=== PATIENT | male | born 1950 | race Caucasian/White ===

== ENCOUNTER 2018-02-23 19:48 | Inpatient (IN) | payer MEDICARE, OTHER ==
[~2018-02-23] VITALS: Ht 170.2 cm; Wt 73.6 kg
--- NOTE | 2018-02-23 19:55 | Emergency Room Report ---
History of Present Illness General Chief Complaint: General Complaint Source: Patient, EMS, Law Enforcement Present Illness HPI EMS were called to the bus stop where this patient was. He has a history of dementia and knows his name but doesn't know where he lives. He has evidence of being recently evaluated in the hospital. He states he's been drinking alcohol today. He denies having pain anywhere at this time. Denies cough, nausea, vomiting, diarrhea, dyspnea, skin rash. He denies suicidal or homicidal ideation. He denies SI or HI. His recent memory is poor. Allergies: Coded Allergies: No Known Allergies (Unverified , 02/23/18) Patient History Limited by: medical condition Past Medical History: see triage record Social History: Reports: alcohol use Social History Narrative has a place where he lives allegedly Reviewed Nursing Documentation: PMH: Agreed; PSxH: Agreed Nursing Documentation-PMH Past Medical History: No Stated History Review of Systems All Other Systems: negative except mentioned in HPI - veracity questioned Physical Exam Vital Signs Date Time Temp Pulse Resp B/P (MAP) Pulse Ox O2 Delivery O2 Flow Rate FiO2 02/23/18 19:39 97.9 86 15 112/71 99 Room Air 97.9 Sp02 EP Interpretation: reviewed, normal General Appearance: well appearing, no apparent distress, other - GCS 14 - not clear on recent events Head: normocephalic, atraumatic Eyes: bilateral eye PERRL, bilateral eye Scleral Injection, bilateral eye other - lax lids ENT: moist mucus membranes Neck: supple, no bony tend Respiratory: chest non-tender, lungs clear, normal breath sounds Cardiovascular #1: regular rate, rhythm Cardiovascular #2: 2+ radial (R) Gastrointestinal: normal inspection, normal bowel sounds, non tender, no mass, non-distended Musculoskeletal: back normal, normal range of motion Neurologic: alert, motor strength/tone normal, DTRs symmetric, sensory intact, speech normal, oriented - X2 Psychiatric: mood/affect normal, no suicidal/homicidal ideation Skin: warm/dry, other - dishevelled, Recent EKG pad oliveros Medical Decision Making Diagnostic Impression: Primary Impression: Failure to thrive Qualified Codes: R62.7 - Adult failure to thrive Additional Impressions: Alcohol intoxication Qualified Codes: F10.929 - Alcohol use, unspecified with intoxication, unspecified Declining functional status ER Course Patient presents with altered level of consciousness after alcohol ingestion. There is no history of trauma. Is a nonfocal neurologic exam at this time. Differential includes dementia, electrolyte abnormality, acute intoxication amongst others. Evaluation will be with EKG, chest x-ray and labs. The patient will receive IV hydration. The patient has been placed on a 5150 by [employer]. Because of non-focal neurologic exam, CT head not indicated at this time. EKG without injury. CXR with possible R effusion and atelectasis bases. Labs with normal CBC, CMP. Alcohol elevated. UA otherwise clear. Patient improving with IV hydration, but still unable to state where he lives. Admit med, Dr. Rosario. A sitter is requested per hospital policy, however, it is felt un-necessary as the hold is for grave disability. Laboratory Tests Test 02/23/18 20:20 02/23/18 21:45 White Blood Count 6.9 K/UL (4.8-10.8) Red Blood Count 4.18 M/UL (4.70-6.10) L Hemoglobin 14.7 G/DL (14.2-18.0) Hematocrit 42.5 % (42.0-52.0) Mean Corpuscular Volume 102 FL (80-99) H Mean Corpuscular Hemoglobin 35.2 PG (27.0-31.0) H Mean Corpuscular Hemoglobin Concent 34.7 G/DL (32.0-36.0) Red Cell Distribution Width 11.9 % (11.6-14.8) Platelet Count 338 K/UL (150-450) Mean Platelet Volume 5.0 FL (6.5-10.1) L Neutrophils (%) (Auto) 39.8 % (45.0-75.0) L Lymphocytes (%) (Auto) 49.3 % (20.0-45.0) H Monocytes (%) (Auto) 9.2 % (1.0-10.0) Eosinophils (%) (Auto) 0.4 % (0.0-3.0) Basophils (%) (Auto) 1.4 % (0.0-2.0) Sodium Level 142 MMOL/L (136-145) Potassium Level 4.1 MMOL/L (3.5-5.1) Chloride Level 106 MMOL/L (98-107) Carbon Dioxide Level 30 MMOL/L (21-32) Anion Gap 6 mmol/L (5-15) Blood Urea Nitrogen 10 mg/dL (7-18) Creatinine 0.9 MG/DL (0.55-1.30) Estimate Glomerular Filtration Rate > 60 mL/min (>60) Glucose Level 101 MG/DL (74-106) Calcium Level 8.1 MG/DL (8.5-10.1) L Total Bilirubin 0.4 MG/DL (0.2-1.0) Aspartate Amino Transferase (AST) 26 U/L (15-37) Alanine Aminotransferase (ALT) 38 U/L (12-78) Alkaline Phosphatase 124 U/L (46-116) H Total Creatine Kinase 165 U/L (26-308) Troponin I 0.000 ng/mL (0.000-0.056) Total Protein 7.4 G/DL (6.4-8.2) Albumin 3.7 G/DL (3.4-5.0) Globulin 3.7 g/dL Albumin/Globulin Ratio 1.0 (1.0-2.7) Salicylates Level 1.1 ug/mL (2.8-20) L Acetaminophen Level < 2 MCG/ML (10-30) L Serum Alcohol 303 mg/dL Urine Color Pale yellow Urine Appearance Slightly cloudy Urine pH 6.5 (4.5-8.0) Urine Specific Athena 1.010 (1.005-1.035) Urine Protein Negative (NEGATIVE) Urine Glucose (UA) Negative (NEGATIVE) Urine Ketones Negative (NEGATIVE) Urine Blood Negative (NEGATIVE) Urine Nitrite Negative (NEGATIVE) Urine Bilirubin Negative (NEGATIVE) Urine Urobilinogen Normal MG/DL (0.0-1.0) Urine Leukocyte Esterase Negative (NEGATIVE) Urine Opiates Screen Negative (NEGATIVE) Urine Barbiturates Screen Negative (NEGATIVE) Phencyclidine (PCP) Screen Negative (NEGATIVE) Urine Amphetamines Screen Negative (NEGATIVE) Urine Benzodiazepines Screen Negative (NEGATIVE) Urine Cocaine Screen Negative (NEGATIVE) Urine Marijuana (THC) Screen Negative (NEGATIVE) EKG Diagnostic Results Rate: normal Rhythm: NSR ST Segments: no acute changes Rhythm Strip Diag. Results EP Interpretation: yes Rhythm: NSR, no PVC's, no ectopy Chest X-Ray Diagnostic Results Chest X-Ray Diagnostic Results : Chest X-Ray Ordered: Yes # of Views/Limited/Complete: 1 View Indication: Other Interpretation: no pneumothorax, other - increased oliveros Bilat and possible effusion R Impression: Other Electronically Signed by: Electronically signed by Stiven Langston MD Last Vital Signs Date Time Temp Pulse Resp B/P (MAP) Pulse Ox O2 Delivery O2 Flow Rate FiO2 02/23/18 20:01 97.9 67 15 132/79 99 Room Air 97.9 Status: improved Disposition: ADMITTED INPATIENT Condition: Serious Stiven Langston M.D. Feb 23, 2018 19:55
[2018-02-23 20:01] VITALS: BP 132/79
[2018-02-23 20:58] LABS: BASOPHILS % (AUTO) 1.4 % (0.0-2.0); EOSINOPHILS % (AUTO) 0.4 % (0.0-3.0); HEMATOCRIT 42.5 % (42.0-52.0); HEMOGLOBIN 14.7 G/DL (14.2-18.0); LYMPHOCYTES % (AUTO) 49.3 % (20.0-45.0); MEAN CORPUSCULAR VOLUME 102 FL (80-99); MONOCYTES % (AUTO) 9.2 % (1.0-10.0); NEUTROPHILS % (AUTO) 39.8 % (45.0-75.0); PLATELET COUNT 338 K/UL (150-450); RED BLOOD COUNT 4.18 M/UL (4.70-6.10); RED CELL DISTRIBUTION WIDTH 11.9 % (11.6-14.8); WHITE BLOOD COUNT 6.9 K/UL (4.8-10.8)
[2018-02-23] MEDS ORDERED: Thiamine HCl 100 MG in D5W 55 ML IVPB STA (21:08)
--- NOTE | 2018-02-23 21:32 | Diagnostic Imaging Report ---
EXAM: XR Chest, 1 View CLINICAL HISTORY: ALOC TECHNIQUE: Frontal view of the chest. COMPARISON: No relevant prior studies available. FINDINGS: Lungs: Mild bibasilar lung atelectasis. Pleural space: Query tiny right pleural effusion. No pneumothorax. Heart: Heart size upper limits normal. Mediastinum: Unremarkable. Bones/joints: Unremarkable. IMPRESSION: 1. Mild bibasilar lung atelectasis. 2. Query tiny right pleural effusion.
[2018-02-23 21:34] LABS: ANION GAP 6 mmol/L (5-15); BLOOD UREA NITROGEN 10 mg/dL (7-18); CALCIUM 8.1 MG/DL (8.5-10.1); CARBON DIOXIDE 30 MMOL/L (21-32); CHLORIDE 106 MMOL/L (98-107); CREATININE 0.9 MG/DL (0.55-1.30); POTASSIUM 4.1 MMOL/L (3.5-5.1); SODIUM 142 MMOL/L (136-145)
[2018-02-23 21:38] LABS: ALBUMIN 3.7 G/DL (3.4-5.0); ASPARTATE AMINO TRANSFERASE 26 U/L (15-37)
[2018-02-23 22:00] LABS: ALANINE AMINOTRANSFERASE 38 U/L (12-78); ALKALINE PHOSPHATASE 124 U/L (46-116); BILIRUBIN,TOTAL 0.4 MG/DL (0.2-1.0); CREATINE KINASE 165 U/L (26-308)
[2018-02-23 22:01] LABS: APPEARANCE,URINE SLIGHTLY CLOUDY; BILIRUBIN, URINE NEGATIVE (NEGATIVE); COLOR,URINE PALE YELLOW; GLUCOSE, URINE (UA) NEGATIVE (NEGATIVE); KETONES,URINE NEGATIVE (NEGATIVE); LEUKOCYTE ESTERASE ,URINE NEGATIVE (NEGATIVE); NITRITE,URINE NEGATIVE (NEGATIVE); PH,URINE 6.5 (4.5-8.0); PROTEIN,URINE NEGATIVE (NEGATIVE); UROBILINOGEN,URINE NORMAL MG/DL (0.0-1.0)
[2018-02-24 01:27] VITALS: BP 101/62
[2018-02-24 05:11] VITALS: BP 125/76
[2018-02-24 07:12] VITALS: BP 124/80
[2018-02-24] MEDS ORDERED: Miralax 17gm pkt ORAL PRN (07:30)
[2018-02-24] MEDS ORDERED: Morphine Sulfate 2mg/ml Inj IVP PRN (07:30)
[2018-02-24] MEDS ORDERED: LORazepam Inj 2mg/ml 1ml IV PRN (07:30)
[2018-02-24] MEDS ORDERED: chlordiazePOXIDE 25mg Cap ORAL PRN (07:30)
[2018-02-24] MEDS ORDERED: Mylanta II UD 30ml ORAL PRN (07:30)
[2018-02-24] MEDS: Thiamine 100mg IVPB (Q24H) IVPB SCH ×2 (10:53)
[2018-02-24] MEDS: Folic Acid 1 MG, Magnesium Sulfate 2,000 MG, Multivitamin - 12 Injection 10 ML in NS w/... IV SCH (10:54)
[2018-02-24] MEDS: Heparin 5000 units/ml inj SUBQ SCH ×2 (10:58→20:56)
[2018-02-24 12:00] VITALS: BP 138/84
[2018-02-24 16:00] VITALS: BP 145/93
[2018-02-24 20:00] VITALS: BP 127/87
[2018-02-24] MEDS ORDERED: Zolpidem 5mg tab ORAL PRN (20:00)
[2018-02-25 04:00] VITALS: BP 125/80
[2018-02-25 06:40] LABS: EOSINOPHILS % (AUTO) 0.7 % (0.0-3.0); HEMATOCRIT 38.5 % (42.0-52.0); HEMOGLOBIN 13.7 G/DL (14.2-18.0); LYMPHOCYTES % (AUTO) 28.6 % (20.0-45.0); MEAN CORPUSCULAR VOLUME 99 FL (80-99); MONOCYTES % (AUTO) 11.3 % (1.0-10.0); NEUTROPHILS % (AUTO) 58.4 % (45.0-75.0); PLATELET COUNT 259 K/UL (150-450); RED CELL DISTRIBUTION WIDTH 11.7 % (11.6-14.8); WHITE BLOOD COUNT 5.3 K/UL (4.8-10.8)
[2018-02-25 07:05] LABS: ALANINE AMINOTRANSFERASE 29 U/L (12-78); ALBUMIN/GLOBULIN RATIO 0.9 (1.0-2.7); ALKALINE PHOSPHATASE 109 U/L (46-116); ANION GAP 8 mmol/L (5-15); ASPARTATE AMINO TRANSFERASE 20 U/L (15-37); BILIRUBIN,TOTAL 0.9 MG/DL (0.2-1.0); BLOOD UREA NITROGEN 5 mg/dL (7-18); CALCIUM 8.3 MG/DL (8.5-10.1); CARBON DIOXIDE 27 MMOL/L (21-32); CHLORIDE 106 MMOL/L (98-107); CREATININE 0.8 MG/DL (0.55-1.30); POTASSIUM 4.1 MMOL/L (3.5-5.1); SODIUM 140 MMOL/L (136-145)
[2018-02-25 07:42] VITALS: BP 138/82
[2018-02-25] MEDS: DULoxetine 30mg cap ORAL SCH (08:24)
[2018-02-25] MEDS: Heparin 5000 units/ml inj SUBQ SCH ×2 (08:25→21:08)
--- NOTE | 2018-02-25 09:00 | History and Physical Report ---
DATE OF ADMISSION: 02/24/2018 TIME: 8 a.m. CONSULTANTS: 1. Susanne Mares M.D. 2. Abbey Wills M.D. 3. Juan Carlos Hernandez M.D. 4. Trevor Mireles M.D. CHIEF COMPLAINT: Weakness, opiates, alcohol intoxication, and confusion. BRIEF HISTORY: This is a 67-year-old male, who lives in a recuperative facility, presents to [place] last night, increased lethargy, gravely disabled, confused, has been drinking vodka one pint over the last day. The patient was admitted for above to medical floor. Currently, slightly anxious in bed. No nausea, vomiting, or diarrhea. PAST MEDICAL HISTORY: Alcoholism and weakness. PAST SURGICAL HISTORY: Mastoid, right shoulder. MEDICATIONS: Include zolpidem, folic acid, thiamine, heparin, Tylenol, morphine, Zofran, lorazepam, and Librium. ALLERGIES: Denies. SOCIAL HISTORY: No smoking. Positive alcohol. No intravenous drug abuse. FAMILY HISTORY: Noncontributory. PHYSICAL EXAMINATION: GENERAL: Slightly anxious in bed, oriented x2, in no acute distress. VITAL SIGNS: Temperature 97, pulse 64, respirations 19, and blood pressure 124/76. CARDIOVASCULAR: No murmurs. LUNGS: Distant and clear. ABDOMEN: Bowel sounds positive. Nontender. Nondistended. EXTREMITIES: No cyanosis, clubbing, or edema. NEUROLOGIC: The patient moves all extremities, slightly weak. LABORATORY AND DIAGNOSTIC DATA: Labs at this time show CBC is normal. BMP show calcium is 8.1, alkaline phosphatase 124, troponin 0.00, otherwise BMP is normal. Urinalysis is negative. Urine tox, salicylate 1.1. Tylenol less than 2. Alcohol level 303. ASSESSMENT: 1. Gravely disabled. 2. . 3. Alcohol intoxication 5150. PLAN: 1. Psychiatric treatment. 2. Neurology followup. 3. Dietary followup. 4. Detox. 5. OT, PT, and dietary evaluation. 6. CBC and BMP in the morning. 7. Resume home medications. Nimesh Rosario D.O. DR: VINNIE JOB#: [id number] CC:
[2018-02-25] MEDS: Thiamine 100mg IVPB (Q24H) IVPB SCH ×2 (09:38)
[2018-02-25] MEDS: Folic Acid 1 MG, Magnesium Sulfate 2,000 MG, Multivitamin - 12 Injection 10 ML in NS w/... IV SCH (09:38)
--- NOTE | 2018-02-25 11:38 | General Progress Note ---
Assessment/Plan Problem List: (1) Declining functional status ICD Codes: R53.81 - Other malaise SNOMED: 346806438117249 (2) Failure to thrive SNOMED: 01414264 Qualifiers: Qualified Codes: R62.7 - Adult failure to thrive (3) Alcohol intoxication ICD Codes: F10.929 - Alcohol use, unspecified with intoxication, unspecified SNOMED: 71863385 Qualifiers: Qualified Codes: F10.929 - Alcohol use, unspecified with intoxication, unspecified (4) Delirium ICD Codes: R41.0 - Disorientation, unspecified SNOMED: 6175182 Status: unchanged Assessment/Plan ot pt diet detox cbc bmp am dc plan snf Subjective Constitutional: Reports: weakness Allergies: Coded Allergies: No Known Allergies (Unverified , 02/23/18) All Systems: reviewed and negative except above Subjective calm in bed Objective Last 24 Hour Vital Signs Date Time Temp Pulse Resp B/P (MAP) Pulse Ox O2 Delivery O2 Flow Rate FiO2 02/25/18 08:00 Room Air 02/25/18 07:42 97.5 80 18 138/82 (100) 96 97.5 02/25/18 04:00 96.5 57 19 125/80 (95) 95 96.5 57 02/24/18 21:00 Room Air 02/24/18 20:00 98.1 65 20 127/87 (100) 95 98.1 65 02/24/18 16:00 98.1 73 20 145/93 (110) 95 98.1 02/24/18 12:00 98.8 76 20 138/84 (102) 94 98.8 Intake and Output 02/24/18 02/25/18 19:00 07:00 Intake Total 1771.008 ml 604.876 ml Output Total 1000 ml 1500 ml Balance 771.008 ml -895.124 ml Intake Oral 660 ml 480 ml IV Total 1111.008 ml 124.876 ml Output Urine Total 1000 ml 1500 ml # Voids 6 # Bowel Movements 1 Laboratory Tests 02/25/18 06:00: White Blood Count 5.3, Red Blood Count 3.90L, Hemoglobin 13.7L, Hematocrit 38.5L , Mean Corpuscular Volume 99, Mean Corpuscular Hemoglobin 35.1H, Mean Corpuscular Hemoglobin Concent 35.6, Red Cell Distribution Width 11.7, Platelet Count 259, Mean Platelet Volume 5.7L, Neutrophils (%) (Auto) 58.4, Lymphocytes ( %) (Auto) 28.6, Monocytes (%) (Auto) 11.3H, Eosinophils (%) (Auto) 0.7, Basophils (%) (Auto) 1.0, Sodium Level 140, Potassium Level 4.1, Chloride Level 106, Carbon Dioxide Level 27, Anion Gap 8, Blood Urea Nitrogen 5L, Creatinine 0.8, Estimat Glomerular Filtration Rate > 60, Glucose Level 92, Calcium Level 8.3L, Total Bilirubin 0.9, Aspartate Amino Transf (AST/SGOT) 20, Alanine Aminotransferase (ALT/SGPT) 29, Alkaline Phosphatase 109, Total Protein 6.3L, Albumin 3.0L, Globulin 3.3, Albumin/Globulin Ratio 0.9L Height (Feet): 5 Height (Inches): 7.00 Weight (Pounds): 160 General Appearance: lethargic EENT: normal ENT inspection Neck: normal alignment Cardiovascular: normal peripheral pulses, normal rate, regular rhythm Respiratory/Chest: chest wall non-tender, lungs clear, normal breath sounds Abdomen: normal bowel sounds, non tender, soft Extremities: normal inspection Edema: no edema noted Arm (L), no edema noted Arm (R), no edema noted Leg (L), no edema noted Leg (R), no edema noted Pedal (L), no edema noted Pedal (R), no edema noted Generalized Neurologic: responsive, motor weakness Skin: normal pigmentation, warm/dry Nimesh Rosario DO Feb 25, 2018 11:38
[2018-02-25 11:40] VITALS: BP 127/87
--- NOTE | 2018-02-25 11:55 | Consultation ---
Consult Note Consult Note EMS were called to the bus stop where this patient was. He has a history of dementia and knows his name but doesn't know where he lives. He has evidence of being recently evaluated in the hospital. He states he's been drinking alcohol today. He denies having pain anywhere at this time. Denies cough, nausea, vomiting, diarrhea, dyspnea, skin rash. He denies suicidal or homicidal ideation. He denies SI or HI. His recent memory is poor. examined data reviewed Assessment/Plan Failure to thrive Alcohol intoxication Declining functional status IV fluids Thiamin Librium DC planning Juan Carlos Hernandez MD Feb 25, 2018 11:55
[2018-02-25] MEDS: Thiamine 100mg tab ORAL SCH (12:00)
[2018-02-25] MEDS ORDERED: Isovue-300 100ml vial INJ PRN (13:45)
--- NOTE | 2018-02-25 13:47 | Consultation ---
History of Present Illness General Date patient seen: Feb 25, 2018 Chief Complaint: General Complaint Present Illness HPI 67 year old male with unknown PMHx was brought in from a bus stop where this patient was found inebriated and confused. He has a history of dementia and knows his name but doesn't know where he lives. He states he's been drinking alcohol today. He denies having pain anywhere at this time. His CXR showed RLL atelectasis. His ETOH level were remarkably high as well. Allergies: Coded Allergies: No Known Allergies (Unverified , 02/23/18) Patient History Healthcare decision maker Resuscitation status Full Code Advanced Directive on File Past Medical/Surgical History Past Medical/Surgical History: (1) ETOH abuse Review of Systems All Other Systems: negative except mentioned in HPI Physical Exam General Appearance: WD/WN Lines, tubes and drains: peripheral HEENT: atraumatic, anicteric Neck: non-tender, normal alignment Respiratory/Chest: chest wall non-tender, lungs clear Breasts: no masses Cardiovascular/Chest: normal rate Abdomen: normal bowel sounds Genitourinary/Rectal: normal genital exam Extremities: normal range of motion Last 24 Hour Vital Signs Date Time Temp Pulse Resp B/P (MAP) Pulse Ox O2 Delivery O2 Flow Rate FiO2 02/25/18 11:40 96.8 71 18 127/87 (100) 96 96.8 0 02/25/18 08:00 Room Air 02/25/18 07:42 97.5 80 18 138/82 (100) 96 97.5 02/25/18 04:00 96.5 57 19 125/80 (95) 95 96.5 57 02/24/18 21:00 Room Air 02/24/18 20:00 98.1 65 20 127/87 (100) 95 98.1 65 02/24/18 16:00 98.1 73 20 145/93 (110) 95 98.1 Intake and Output 02/24/18 02/25/18 19:00 07:00 Intake Total 1771.008 ml 604.876 ml Output Total 1000 ml 1500 ml Balance 771.008 ml -895.124 ml Intake Oral 660 ml 480 ml IV Total 1111.008 ml 124.876 ml Output Urine Total 1000 ml 1500 ml # Voids 6 # Bowel Movements 1 Laboratory Tests Test 10/8/18 06:00 White Blood Count 5.3 K/UL (4.8-10.8) Red Blood Count 3.90 M/UL (4.70-6.10) L Hemoglobin 13.7 G/DL (14.2-18.0) L Hematocrit 38.5 % (42.0-52.0) L Mean Corpuscular Volume 99 FL (80-99) Mean Corpuscular Hemoglobin 35.1 PG (27.0-31.0) H Mean Corpuscular Hemoglobin Concent 35.6 G/DL (32.0-36.0) Red Cell Distribution Width 11.7 % (11.6-14.8) Platelet Count 259 K/UL (150-450) Mean Platelet Volume 5.7 FL (6.5-10.1) L Neutrophils (%) (Auto) 58.4 % (45.0-75.0) Lymphocytes (%) (Auto) 28.6 % (20.0-45.0) Monocytes (%) (Auto) 11.3 % (1.0-10.0) H Eosinophils (%) (Auto) 0.7 % (0.0-3.0) Basophils (%) (Auto) 1.0 % (0.0-2.0) Sodium Level 140 MMOL/L (136-145) Potassium Level 4.1 MMOL/L (3.5-5.1) Chloride Level 106 MMOL/L (98-107) Carbon Dioxide Level 27 MMOL/L (21-32) Anion Gap 8 mmol/L (5-15) Blood Urea Nitrogen 5 mg/dL (7-18) L Creatinine 0.8 MG/DL (0.55-1.30) Estimat Glomerular Filtration Rate > 60 mL/min (>60) Glucose Level 92 MG/DL (74-106) Calcium Level 8.3 MG/DL (8.5-10.1) L Total Bilirubin 0.9 MG/DL (0.2-1.0) Aspartate Amino Transf (AST/SGOT) 20 U/L (15-37) Alanine Aminotransferase (ALT/SGPT) 29 U/L (12-78) Alkaline Phosphatase 109 U/L (46-116) Total Protein 6.3 G/DL (6.4-8.2) L Albumin 3.0 G/DL (3.4-5.0) L Globulin 3.3 g/dL Albumin/Globulin Ratio 0.9 (1.0-2.7) L Height (Feet): 5 Height (Inches): 7.00 Weight (Pounds): 160 Medications Current Medications Medications (Trade) Dose Ordered Sig/Mio Route PRN Reason Start Time Stop Time Status Last Admin Dose Admin Acetaminophen (Tylenol) 650 mg Q4H PRN ORAL fever (temp>100.5F) 02/24/18 07:30 03/26/18 07:29 Chlordiazepoxide (Librium) 25 mg Q6H PRN ORAL Agitation 02/24/18 07:30 03/03/18 07:29 Dextrose (Dextrose 50%) 25 ml Q30M PRN IV Hypoglycemia 02/24/18 07:30 03/26/18 07:29 Dextrose (Dextrose 50%) 50 ml Q30M PRN IV Hypoglycemia 02/24/18 07:30 03/26/18 07:29 Duloxetine HCl (Cymbalta) 30 mg DAILY ORAL 02/25/18 09:00 03/27/18 08:59 02/25/18 08:24 Folic Acid (Folate) 1 mg DAILY ORAL 02/25/18 12:00 03/27/18 11:59 Gabapentin (Neurontin) 300 mg TID ORAL 02/25/18 09:00 03/27/18 08:59 02/25/18 12:31 Heparin Sodium (Porcine) (Heparin 5000 units/ml) 5,000 units EVERY 12 HOURS SUBQ 02/24/18 09:00 03/26/18 08:59 02/25/18 08:25 Lorazepam (Ativan 2mg/ml 1ml) 2 mg Q1H PRN IV seizures 02/24/18 07:30 03/03/18 07:29 Morphine Sulfate (Morphine Sulfate) 1 mg Q4H PRN IVP For Pain 02/24/18 07:30 03/03/18 07:29 Ondansetron HCl (Zofran) 4 mg Q6H PRN IVP Nausea & Vomiting 02/24/18 07:30 03/26/18 07:29 Pantoprazole (Protonix) 40 mg DAILY ORAL 02/26/18 09:00 03/28/18 08:59 Polyethylene Glycol (Miralax) 17 gm HSPRN PRN ORAL Constipation 02/24/18 07:30 03/26/18 07:29 Thiamine HCl (Vitamin B1) 100 mg DAILY ORAL 02/25/18 12:00 03/27/18 11:59 Zolpidem Tartrate (Ambien) 5 mg HSPRN PRN ORAL Insomnia 02/24/18 20:00 03/03/18 19:59 Assessment/Plan Problem List: (1) RLL atelectasis (2) ETOH abuse ICD Codes: F10.10 - Alcohol abuse, uncomplicated SNOMED: 77118638 (3) Failure to thrive SNOMED: 61729459 Qualifiers: Qualified Codes: R62.7 - Adult failure to thrive (4) Delirium ICD Codes: R41.0 - Disorientation, unspecified SNOMED: 1737802 (5) Alcohol intoxication ICD Codes: F10.929 - Alcohol use, unspecified with intoxication, unspecified SNOMED: 30259625 Qualifiers: Qualified Codes: F10.929 - Alcohol use, unspecified with intoxication, unspecified Assessment/Plan IV fluids banana bag CT chest social service consult. Abbey Wills MD Feb 25, 2018 13:47
--- NOTE | 2018-02-25 14:45 | Cardiology Report ---
APPROVED REPORT EKG Measurement Heart [id number] Normal sinus rhythm Normal ECG
[2018-02-25 16:00] VITALS: BP 135/94
--- NOTE | 2018-02-25 16:21 | Diagnostic Imaging Report ---
Indication: Chest pain Technique: Continuous helical transaxial imaging of the chest was obtained from the thoracic inlet to the upper abdomen after intravenous nonionic contrast administration. Coronal 2-D reformats were also obtained. Automatic Exposure Control was utilized. Total Dose length Product (DLP): 991.[address] Dose Index Volume (CTDIvol): 24.46 mGy Comparison: none Findings: There is mild basal atelectasis with reticular markings noted at the lung periphery in the dependent posterior basilar fashion. The esophagus is fluid-filled and slightly dilated. There is no adenopathy. The heart is unremarkable. The liver is low in attenuation consistent with fatty infiltration. Multiple gallstones demonstrated. There is narrowing of intervertebral discs and accompanying endplate osteophyte formation. Hypertrophied facet joints also demonstrated. There is a left shoulder prosthesis. IMPRESSION: Slightly distended esophagus. Correlate clinically. Minimal basal atelectasis. Fatty liver. Cholelithiasis Degenerative changes of the spine The CT scanner at [facility] is accredited by the [employer] and the scans are performed using dose optimization techniques as appropriate to a performed exam including Automatic Exposure control.
[2018-02-25 20:00] VITALS: BP 168/91
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
[2018-02-26] VITALS: BP 140/81
[2018-02-26 04:00] VITALS: BP 151/82
[2018-02-26 06:39] LABS: EOSINOPHILS % (AUTO) 0.8 % (0.0-3.0); HEMATOCRIT 41.5 % (42.0-52.0); HEMOGLOBIN 15.1 G/DL (14.2-18.0); LYMPHOCYTES % (AUTO) 31.1 % (20.0-45.0); MEAN CORPUSCULAR VOLUME 98 FL (80-99); NEUTROPHILS % (AUTO) 59.1 % (45.0-75.0); PLATELET COUNT 281 K/UL (150-450); RED BLOOD COUNT 4.22 M/UL (4.70-6.10); RED CELL DISTRIBUTION WIDTH 11.4 % (11.6-14.8); WHITE BLOOD COUNT 7.1 K/UL (4.8-10.8)
[2018-02-26 07:14] LABS: ALANINE AMINOTRANSFERASE 30 U/L (12-78); ALBUMIN 3.3 G/DL (3.4-5.0); ALBUMIN/GLOBULIN RATIO 0.9 (1.0-2.7); ALKALINE PHOSPHATASE 116 U/L (46-116); ASPARTATE AMINO TRANSFERASE 19 U/L (15-37); BILIRUBIN,TOTAL 0.9 MG/DL (0.2-1.0); BLOOD UREA NITROGEN 5 mg/dL (7-18); CALCIUM 8.6 MG/DL (8.5-10.1); CHLORIDE 105 MMOL/L (98-107); CREATININE 0.7 MG/DL (0.55-1.30); POTASSIUM 4.5 MMOL/L (3.5-5.1); SODIUM 139 MMOL/L (136-145)
[2018-02-26 07:39] VITALS: BP 138/84
[2018-02-26 07:48] LABS: PHOSPHORUS 3.7 MG/DL (2.5-4.9)
[2018-02-26 07:59] LABS: CARBON DIOXIDE 19 MMOL/L (21-32)
[2018-02-26] MEDS: Thiamine 100mg tab ORAL SCH (08:04)
[2018-02-26] MEDS: DULoxetine 30mg cap ORAL SCH (08:04)
[2018-02-26] MEDS: Heparin 5000 units/ml inj SUBQ SCH ×2 (08:09→20:57)
[2018-02-26 11:36] VITALS: BP 128/72
--- NOTE | 2018-02-26 12:35 | Nephrology Progress Note ---
Assessment/Plan Problem List: (1) Failure to thrive (2) Alcohol intoxication (3) Declining functional status Assessment Failure to thrive Alcohol intoxication Declining functional status Plan IV fluids Thiamin Librium DC planning Subjective ROS Limited/Unobtainable: No Objective Objective Last 24 Hour Vital Signs Date Time Temp Pulse Resp B/P (MAP) Pulse Ox O2 Delivery O2 Flow Rate FiO2 02/26/18 11:36 97.3 70 20 128/72 (90) 96 97.3 02/26/18 07:39 97.5 73 20 138/84 (102) 95 97.5 02/26/18 07:30 Room Air 02/26/18 04:00 97.6 67 19 151/82 (105) 98 97.6 02/26/18 00:00 97.2 58 20 140/81 (100) 97 97.2 02/25/18 21:00 Room Air 02/25/18 20:00 97.0 68 20 168/91 (116) 95 97.0 02/25/18 16:00 97.4 83 18 135/94 (108) 97 97.4 83 Intake and Output 02/25/18 02/26/18 19:00 07:00 Intake Total 3996.4 ml Output Total 400 ml Balance 3596.4 ml Intake Oral 1990 ml IV Total 2006.4 ml Output Urine Total 400 ml # Voids 6 1 Laboratory Tests 02/25/18 23:00: Hemoglobin A1c 5.0, Ammonia 21, Vitamin B12 Level 667, Folate 35.7, Thyroid Stimulating Hormone (TSH) 3.305 02/26/18 05:50: White Blood Count 7.1, Red Blood Count 4.22L, Hemoglobin 15.1, Hematocrit 41.5L , Mean Corpuscular Volume 98, Mean Corpuscular Hemoglobin 35.7H, Mean Corpuscular Hemoglobin Concent 36.3H, Red Cell Distribution Width 11.4L, Platelet Count 281, Mean Platelet Volume 5.5L, Neutrophils (%) (Auto) 59.1, Lymphocytes (%) (Auto) 31.1, Monocytes (%) (Auto) 8.0, Eosinophils (%) (Auto) 0.8, Basophils (%) (Auto) 1.0, Erythrocyte Sedimentation Rate 19, Sodium Level 139, Potassium Level 4.5, Chloride Level 105, Carbon Dioxide Level 19L, Blood Urea Nitrogen 5L, Creatinine 0.7, Estimat Glomerular Filtration Rate > 60, Glucose Level 91, Calcium Level 8.6, Phosphorus Level 3.7, Magnesium Level 2.2, Total Bilirubin 0.9, Aspartate Amino Transf (AST/SGOT) 19, Alanine Aminotransferase (ALT/SGPT) 30, Alkaline Phosphatase 116, C-Reactive Protein, Quantitative < 0.4, Total Protein 6.8, Albumin 3.3L, Globulin 3.5, Albumin/ Globulin Ratio 0.9L Height (Feet): 5 Height (Inches): 7.00 Weight (Pounds): 160 General Appearance: no apparent distress Objective no change Juan Carlos Hernandez MD Feb 26, 2018 12:35
--- NOTE | 2018-02-26 13:43 | Pulmonology Progress Note ---
Assessment/Plan Problems: (1) RLL atelectasis (2) ETOH abuse (3) Failure to thrive (4) Delirium (5) Alcohol intoxication Assessment/Plan pain control neuro evaluation in progress pt/ot EEG and MRI of Brain pending symptomatic treatment check electrolytes' dvt prophylaxis Subjective ROS Limited/Unobtainable: No Constitutional: Reports: no symptoms HEENT: Repors: no symptoms Respiratory: Reports: no symptoms Allergies: Coded Allergies: No Known Allergies (Unverified , 02/23/18) Objective Last 24 Hour Vital Signs Date Time Temp Pulse Resp B/P (MAP) Pulse Ox O2 Delivery O2 Flow Rate FiO2 02/26/18 11:36 97.3 70 20 128/72 (90) 96 97.3 02/26/18 07:39 97.5 73 20 138/84 (102) 95 97.5 02/26/18 07:30 Room Air 02/26/18 04:00 97.6 67 19 151/82 (105) 98 97.6 02/26/18 00:00 97.2 58 20 140/81 (100) 97 97.2 02/25/18 21:00 Room Air 02/25/18 20:00 97.0 68 20 168/91 (116) 95 97.0 02/25/18 16:00 97.4 83 18 135/94 (108) 97 97.4 83 Intake and Output 02/25/18 02/26/18 19:00 07:00 Intake Total 3996.4 ml Output Total 400 ml Balance 3596.4 ml Intake Oral 1990 ml IV Total 2006.4 ml Output Urine Total 400 ml # Voids 6 1 General Appearance: WD/WN HEENT: normocephalic, atraumatic Respiratory/Chest: chest wall non-tender, normal breath sounds Cardiovascular: normal peripheral pulses, normal rate Abdomen: normal bowel sounds, soft, non tender Genitourinary: normal external genitalia Extremities: no cyanosis Skin: no lesions Neurologic/Psychiatric: slasher hand II-XII grossly normal Microbiology Date/Time Source Procedure Growth Status 02/24/18 11:30 Nasal Nares MRSA Culture - Final NO METHICILLIN RESISTANT STAPH AUREUS... Complete 02/24/18 11:30 Rectum VRE Culture - Final NO VANCOMYCIN RESISTANT ENTEROCOCCUS ... Complete Laboratory Tests 02/25/18 23:00: Hemoglobin A1c 5.0, Ammonia 21, Vitamin B12 Level 667, Folate 35.7, Thyroid Stimulating Hormone (TSH) 3.305 02/26/18 05:50: White Blood Count 7.1, Red Blood Count 4.22L, Hemoglobin 15.1, Hematocrit 41.5L , Mean Corpuscular Volume 98, Mean Corpuscular Hemoglobin 35.7H, Mean Corpuscular Hemoglobin Concent 36.3H, Red Cell Distribution Width 11.4L, Platelet Count 281, Mean Platelet Volume 5.5L, Neutrophils (%) (Auto) 59.1, Lymphocytes (%) (Auto) 31.1, Monocytes (%) (Auto) 8.0, Eosinophils (%) (Auto) 0.8, Basophils (%) (Auto) 1.0, Erythrocyte Sedimentation Rate 19, Sodium Level 139, Potassium Level 4.5, Chloride Level 105, Carbon Dioxide Level 19L, Blood Urea Nitrogen 5L, Creatinine 0.7, Estimat Glomerular Filtration Rate > 60, Glucose Level 91, Calcium Level 8.6, Phosphorus Level 3.7, Magnesium Level 2.2, Total Bilirubin 0.9, Aspartate Amino Transf (AST/SGOT) 19, Alanine Aminotransferase (ALT/SGPT) 30, Alkaline Phosphatase 116, C-Reactive Protein, Quantitative < 0.4, Total Protein 6.8, Albumin 3.3L, Globulin 3.5, Albumin/ Globulin Ratio 0.9L Current Medications Medications (Trade) Dose Ordered Sig/Mio Route PRN Reason Start Time Stop Time Status Last Admin Dose Admin Acetaminophen (Tylenol) 650 mg Q4H PRN ORAL fever (temp>100.5F) 02/24/18 07:30 03/26/18 07:29 Chlordiazepoxide (Librium) 25 mg Q6H PRN ORAL Agitation 02/24/18 07:30 03/03/18 07:29 Dextrose (Dextrose 50%) 25 ml Q30M PRN IV Hypoglycemia 02/24/18 07:30 03/26/18 07:29 Dextrose (Dextrose 50%) 50 ml Q30M PRN IV Hypoglycemia 02/24/18 07:30 03/26/18 07:29 Duloxetine HCl (Cymbalta) 30 mg DAILY ORAL 02/25/18 09:00 03/27/18 08:59 02/26/18 08:04 Folic Acid (Folate) 1 mg DAILY ORAL 02/25/18 12:00 03/27/18 11:59 02/26/18 08:03 Gabapentin (Neurontin) 300 mg TID ORAL 02/25/18 09:00 03/27/18 08:59 02/26/18 12:15 Heparin Sodium (Porcine) (Heparin 5000 units/ml) 5,000 units EVERY 12 HOURS SUBQ 02/24/18 09:00 03/26/18 08:59 02/26/18 08:09 Iopamidol (Isovue-300 100ml) 100 ml NOW PRN INJ Radiology Procedure 02/25/18 13:45 02/27/18 13:44 Lorazepam (Ativan 2mg/ml 1ml) 2 mg Q1H PRN IV seizures 02/24/18 07:30 03/03/18 07:29 Morphine Sulfate (Morphine Sulfate) 1 mg Q4H PRN IVP For Pain 02/24/18 07:30 03/03/18 07:29 Ondansetron HCl (Zofran) 4 mg Q6H PRN IVP Nausea & Vomiting 02/24/18 07:30 03/26/18 07:29 Pantoprazole (Protonix) 40 mg DAILY ORAL 02/26/18 09:00 03/28/18 08:59 02/26/18 08:04 Polyethylene Glycol (Miralax) 17 gm HSPRN PRN ORAL Constipation 02/24/18 07:30 03/26/18 07:29 Thiamine HCl (Vitamin B1) 100 mg DAILY ORAL 02/25/18 12:00 03/27/18 11:59 02/26/18 08:04 Zolpidem Tartrate (Ambien) 5 mg HSPRN PRN ORAL Insomnia 02/24/18 20:00 03/03/18 19:59 Abbey Wills MD Feb 26, 2018 13:43
--- NOTE | 2018-02-26 14:13 | General Progress Note ---
Assessment/Plan Problem List: (1) Declining functional status ICD Codes: R53.81 - Other malaise SNOMED: 931153974568753 (2) Failure to thrive SNOMED: 17766081 Qualifiers: Qualified Codes: R62.7 - Adult failure to thrive (3) Alcohol intoxication ICD Codes: F10.929 - Alcohol use, unspecified with intoxication, unspecified SNOMED: 93590523 Qualifiers: Qualified Codes: F10.929 - Alcohol use, unspecified with intoxication, unspecified (4) Delirium ICD Codes: R41.0 - Disorientation, unspecified SNOMED: 2272253 Status: stable, progressing Assessment/Plan ot pt diet detox dc if clear Subjective Constitutional: Reports: weakness Allergies: Coded Allergies: No Known Allergies (Unverified , 02/23/18) All Systems: reviewed and negative except above Subjective calm in bed Objective Last 24 Hour Vital Signs Date Time Temp Pulse Resp B/P (MAP) Pulse Ox O2 Delivery O2 Flow Rate FiO2 02/26/18 11:36 97.3 70 20 128/72 (90) 96 97.3 02/26/18 07:39 97.5 73 20 138/84 (102) 95 97.5 02/26/18 07:30 Room Air 02/26/18 04:00 97.6 67 19 151/82 (105) 98 97.6 02/26/18 00:00 97.2 58 20 140/81 (100) 97 97.2 02/25/18 21:00 Room Air 02/25/18 20:00 97.0 68 20 168/91 (116) 95 97.0 02/25/18 16:00 97.4 83 18 135/94 (108) 97 97.4 83 Intake and Output 02/25/18 02/26/18 19:00 07:00 Intake Total 3996.4 ml Output Total 400 ml Balance 3596.4 ml Intake Oral 1990 ml IV Total 2006.4 ml Output Urine Total 400 ml # Voids 6 1 Laboratory Tests 02/25/18 23:00: Hemoglobin A1c 5.0, Ammonia 21, Vitamin B12 Level 667, Folate 35.7, Thyroid Stimulating Hormone (TSH) 3.305 02/26/18 05:50: White Blood Count 7.1, Red Blood Count 4.22L, Hemoglobin 15.1, Hematocrit 41.5L , Mean Corpuscular Volume 98, Mean Corpuscular Hemoglobin 35.7H, Mean Corpuscular Hemoglobin Concent 36.3H, Red Cell Distribution Width 11.4L, Platelet Count 281, Mean Platelet Volume 5.5L, Neutrophils (%) (Auto) 59.1, Lymphocytes (%) (Auto) 31.1, Monocytes (%) (Auto) 8.0, Eosinophils (%) (Auto) 0.8, Basophils (%) (Auto) 1.0, Erythrocyte Sedimentation Rate 19, Sodium Level 139, Potassium Level 4.5, Chloride Level 105, Carbon Dioxide Level 19L, Blood Urea Nitrogen 5L, Creatinine 0.7, Estimat Glomerular Filtration Rate > 60, Glucose Level 91, Calcium Level 8.6, Phosphorus Level 3.7, Magnesium Level 2.2, Total Bilirubin 0.9, Aspartate Amino Transf (AST/SGOT) 19, Alanine Aminotransferase (ALT/SGPT) 30, Alkaline Phosphatase 116, C-Reactive Protein, Quantitative < 0.4, Total Protein 6.8, Albumin 3.3L, Globulin 3.5, Albumin/ Globulin Ratio 0.9L Height (Feet): 5 Height (Inches): 7.00 Weight (Pounds): 160 General Appearance: lethargic EENT: normal ENT inspection Neck: normal alignment Cardiovascular: normal peripheral pulses, normal rate, regular rhythm Respiratory/Chest: chest wall non-tender, lungs clear, normal breath sounds Abdomen: normal bowel sounds, non tender, soft Extremities: normal inspection Edema: no edema noted Arm (L), no edema noted Arm (R), no edema noted Leg (L), no edema noted Leg (R), no edema noted Pedal (L), no edema noted Pedal (R), no edema noted Generalized Neurologic: motor weakness Skin: normal pigmentation, warm/dry Nimesh Rosario DO Feb 26, 2018 14:13
--- NOTE | 2018-02-26 15:16 | Diagnostic Imaging Report ---
Indication: Dementia. Loss of memory Technique: The head was imaged in a 1.5 Shreya magnet. Sequences obtained include sagittal and axial T1 FLAIR, axial T2 fast spin echo with fat saturation, axial T2 FLAIR, diffusion and ADC map. Comparison: None Findings: There is moderate prominence of the sulci, ventricles, and basal cisterns consistent with atrophy. Moderate, nonspecific T2 hyperintensity noted within white matter. This may be due to chronic small vessel disease. There is a cavum septum pellucidum noted. There is no restricted diffusion. Boucher-white differentiation is normal. There is no mass effect, midline shift, edema, or hemorrhage. There are no abnormal extra-axial or intra-axial fluid collections. The corpus callosum and sella are unremarkable. The brainstem and cerebellum are unremarkable. Bone marrow signal within the visualized osseous structures appears age appropriate and unremarkable otherwise. There is fluid signal in the right mastoid region and the mild fluid signal in the anterior ethmoid region. Impression: No acute intracranial findings. Moderate atrophy and evidence of chronic small vessel disease involving white matter tracts. Cavum septum pellucidum Mild right mastoiditis and sinusitis
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
[2018-02-26 16:34] VITALS: BP 145/93
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
[2018-02-26 20:00] VITALS: BP 140/86
--- NOTE | 2018-02-26 21:00 | Progress Note ---
DATE: 02/26/2018 NOTE: "POOR AUDIO QUALITY" SUBJECTIVE: The patient is a 67-year-old male. The patient has failure to thrive. He is confused, disorganized. He has altered mental status. For that reason, his attending has requested daily psychiatric consultation. He also is detoxing from alcohol intoxication. I saw and assessed this patient in his room. He still complains of a lot of anxiety, depression, and some slight mood lability worsened by stress of his medical illness and that is why his attending has requested daily psychiatric consultation for this patient. He has turned towards depression and anxiety because of a lot of life's circumstances he has had to go through and decline in function due to traumatic events he just had to go through has declined significantly. Now he is unable to work and as a result had dropped in finances. MENTAL STATUS EXAMINATION: This is a 67-year-old male. Appearance is disheveled. Attitude, irritable and agitated. Affect, guarded and restricted. Intellect poor. Mood, depressed and anxious. Motor activity, psychomotor agitation. Attention span is poor. Orientation x2. Speech is low volume and slurred. Thought process, disorganized and illogical. Thought content, he denies auditory or visual hallucinations. Insight and judgment is poor. Denies suicidal or homicidal thoughts. DIAGNOSIS: Major depressive disorder, severe, recurrent without psychotic features. PLAN: Treat him with Neurontin 300 mg three times a day and then he will continue on his Neurontin 300 mg three times a day and Cymbalta to reduce the pain, anxiety, and depression 30 mg p.o. daily. He is no longer on Librium. Provided 20 minutes of cognitive behavioral therapy where I helped the patient identify his automatic negative thoughts and helped him to convert those negative thoughts to more positive thoughts to reduce depression, anxiety, and suicidality. A 20 minutes of cognitive behavioral therapy. Chart reviewed. Discussed with staff. Seen and assessed at bedside. Susanne Morataya M.D. DR: JACOB JOB#: [id number] CC:
[2018-02-27] VITALS: BP 125/69
--- NOTE | 2018-02-27 | Consultation ---
DATE OF CONSULTATION: 02/25/2018 PSYCHOTHERAPY CONSULTATION PROGRESS NOTE CONSULTING PHYSICIAN: Bryon Carreon PsyD. TREATING ATTENDING PHYSICIAN: Nimesh Rosario D.O. INCOMPLETE DICTATION Bryon Carreon PsyD. DR: HELENE JOB#: [id number] CC:
--- NOTE | 2018-02-27 03:00 | Consultation ---
DATE OF CONSULTATION: 02/25/2018 "NOTE: POOR AUDIO QUALITY" CONSULTING PHYSICIAN: Bryon Carreon PsyD. TREATING ATTENDING PHYSICIAN: Nimesh Rosario D.O. HISTORY OF PRESENT ILLNESS: This patient is a 67-year-old male patient. He was brought in to the hospital for failure to thrive and delirium. The patient was on opiate, alcohol intoxication . For these reasons, he was referred for psychotherapeutic services. This clinician assessed this patient. The patient was confused; however, he is more alert and awake and able to communicate. The patient states that he has been drinking alcohol, vodka and he has . He wants to get back to work. He states that he . The patient has been confused, disorganized, and hopeless. He denies suicidal or homicidal thoughts of ideation. States "I want to live. I have a good life. I don't want to ." The patient has been cooperative, however, . The patient states that he does have a history of anxiety and depression. PAST MEDICAL HISTORY: Includes a history of weakness. ALLERGIES: The patient has no known drug allergies. SUBSTANCE ABUSE HISTORY: The patient has a history of alcohol use. Denies a history of illicit substance use or smoking cigarettes. PSYCHIATRIC HISTORY: The patient has a history of anxiety and depression according to his self-report. SOCIAL HISTORY: The patient states that he is from [place]. The patient is a 67-year-old single male patient. Financially sustained through [facility]. MENTAL STATUS EXAMINATION: The patient is alert and oriented to person and place. Mood is anxious. Affect is blunted. Thought process . Poor insight, judgment, and impulse control. DIAGNOSES: Generalized anxiety disorder, major depressive disorder, moderate, recurrent without psychotic features, and alcohol abuse. PLAN: The patient provided with reality orientation and supportive psychotherapy at this time. The patient denies suicidal or homicidal thoughts of ideation. . Continue behavioral management. This clinician has reviewed the patient's chart and discussed the treatment with treatment team. Bryon Carreon PsyD. DR: AJ JOB#: [id number] CC:
[2018-02-27 04:00] VITALS: BP 133/87
[2018-02-27 08:00] VITALS: BP 145/105
[2018-02-27] MEDS: Heparin 5000 units/ml inj SUBQ SCH (09:00)
[2018-02-27] MEDS: DULoxetine 30mg cap ORAL SCH (09:18)
[2018-02-27] MEDS: Thiamine 100mg tab ORAL SCH (09:18)
--- NOTE | 2018-02-27 10:07 | Nephrology Progress Note ---
Assessment/Plan Problem List: (1) Failure to thrive (2) Alcohol intoxication (3) Declining functional status Assessment Failure to thrive Alcohol intoxication Declining functional status Plan IV fluids Thiamin Librium DC planning Subjective ROS Limited/Unobtainable: No Objective Objective Last 24 Hour Vital Signs Date Time Temp Pulse Resp B/P (MAP) Pulse Ox O2 Delivery O2 Flow Rate FiO2 02/27/18 09:00 Room Air 02/27/18 08:00 97.0 82 18 145/105 (118) 96 97.0 02/27/18 04:00 97.5 57 18 133/87 (102) 96 97.5 02/27/18 00:00 97.3 54 17 125/69 (87) 96 97.3 02/26/18 20:04 Room Air 02/26/18 20:00 97.7 66 19 140/86 (104) 96 97.7 02/26/18 16:34 97.4 68 17 145/93 (110) 96 97.4 02/26/18 11:36 97.3 70 20 128/72 (90) 96 97.3 Intake and Output 02/26/18 02/27/18 19:00 07:00 Intake Total 1200 ml Balance 1200 ml Other 1200 ml # Voids 3 Height (Feet): 5 Height (Inches): 7.00 Weight (Pounds): 162 General Appearance: no apparent distress Objective no change Juan Carlos Hernandez MD Feb 27, 2018 10:07
[2018-02-27] MEDS ORDERED: FOLIC ACID1 MG ORAL (10:11)
[2018-02-27] MEDS ORDERED: CYMBALTA30 MG ORAL (10:11)
[2018-02-27] MEDS ORDERED: GABAPENTIN300 MG ORAL (10:12)
[2018-02-27] MEDS ORDERED: PANTOPRAZOLE SO40 MG ORAL (11:11)
[2018-02-27] MEDS ORDERED: VITAMIN B-1100 MG ORAL (11:11)
--- NOTE | 2018-02-27 12:04 | Pulmonology Progress Note ---
Assessment/Plan Problems: (1) RLL atelectasis (2) ETOH abuse (3) Failure to thrive (4) Delirium (5) Alcohol intoxication Assessment/Plan pain control neuro evaluation in progress pt/ot EEG and MRI of Brain pending symptomatic treatment check electrolytes' dvt prophylaxis dc planning Subjective ROS Limited/Unobtainable: No Constitutional: Reports: no symptoms HEENT: Repors: no symptoms Respiratory: Reports: no symptoms Allergies: Coded Allergies: No Known Allergies (Unverified , 02/23/18) Objective Last 24 Hour Vital Signs Date Time Temp Pulse Resp B/P (MAP) Pulse Ox O2 Delivery O2 Flow Rate FiO2 02/27/18 09:00 Room Air 02/27/18 08:00 97.0 82 18 145/105 (118) 96 97.0 02/27/18 04:00 97.5 57 18 133/87 (102) 96 97.5 02/27/18 00:00 97.3 54 17 125/69 (87) 96 97.3 02/26/18 20:04 Room Air 02/26/18 20:00 97.7 66 19 140/86 (104) 96 97.7 02/26/18 16:34 97.4 68 17 145/93 (110) 96 97.4 Intake and Output 02/26/18 02/27/18 19:00 07:00 Intake Total 1200 ml Balance 1200 ml Other 1200 ml # Voids 3 General Appearance: WD/WN HEENT: normocephalic, atraumatic Respiratory/Chest: chest wall non-tender, lungs clear Cardiovascular: normal peripheral pulses, regular rhythm Abdomen: normal bowel sounds, non distended Extremities: no cyanosis Skin: no lesions Current Medications Medications (Trade) Dose Ordered Sig/Mio Route PRN Reason Start Time Stop Time Status Last Admin Dose Admin Acetaminophen (Tylenol) 650 mg Q4H PRN ORAL fever (temp>100.5F) 02/24/18 07:30 03/26/18 07:29 Chlordiazepoxide (Librium) 25 mg Q6H PRN ORAL Agitation 02/24/18 07:30 03/03/18 07:29 Dextrose (Dextrose 50%) 25 ml Q30M PRN IV Hypoglycemia 02/24/18 07:30 03/26/18 07:29 Dextrose (Dextrose 50%) 50 ml Q30M PRN IV Hypoglycemia 02/24/18 07:30 03/26/18 07:29 Duloxetine HCl (Cymbalta) 30 mg DAILY ORAL 02/25/18 09:00 03/27/18 08:59 02/27/18 09:18 Folic Acid (Folate) 1 mg DAILY ORAL 02/25/18 12:00 03/27/18 11:59 02/27/18 09:18 Gabapentin (Neurontin) 300 mg TID ORAL 02/25/18 09:00 03/27/18 08:59 02/27/18 09:18 Heparin Sodium (Porcine) (Heparin 5000 units/ml) 5,000 units EVERY 12 HOURS SUBQ 02/24/18 09:00 03/26/18 08:59 02/26/18 20:57 Iopamidol (Isovue-300 100ml) 100 ml NOW PRN INJ Radiology Procedure 02/25/18 13:45 02/27/18 13:44 Lorazepam (Ativan 2mg/ml 1ml) 2 mg Q1H PRN IV seizures 02/24/18 07:30 03/03/18 07:29 Ondansetron HCl (Zofran) 4 mg Q6H PRN IVP Nausea & Vomiting 02/24/18 07:30 03/26/18 07:29 Pantoprazole (Protonix) 40 mg DAILY ORAL 02/26/18 09:00 03/28/18 08:59 02/27/18 09:18 Polyethylene Glycol (Miralax) 17 gm HSPRN PRN ORAL Constipation 02/24/18 07:30 03/26/18 07:29 Thiamine HCl (Vitamin B1) 100 mg DAILY ORAL 02/25/18 12:00 03/27/18 11:59 02/27/18 09:18 Zolpidem Tartrate (Ambien) 5 mg HSPRN PRN ORAL Insomnia 02/24/18 20:00 03/03/18 19:59 Abbey Wills MD Feb 27, 2018 12:04
--- NOTE | 2018-02-27 13:42 | General Progress Note ---
Assessment/Plan Problem List: (1) Declining functional status ICD Codes: R53.81 - Other malaise SNOMED: 325184266550335 (2) Failure to thrive SNOMED: 01267590 Qualifiers: Qualified Codes: R62.7 - Adult failure to thrive (3) Alcohol intoxication ICD Codes: F10.929 - Alcohol use, unspecified with intoxication, unspecified SNOMED: 62423674 Qualifiers: Qualified Codes: F10.929 - Alcohol use, unspecified with intoxication, unspecified (4) Delirium ICD Codes: R41.0 - Disorientation, unspecified SNOMED: 1035205 Status: stable, progressing Assessment/Plan ot pt diet detox dc if clear Subjective Constitutional: Reports: weakness Allergies: Coded Allergies: No Known Allergies (Unverified , 02/23/18) All Systems: reviewed and negative except above Subjective calm in bed Objective Last 24 Hour Vital Signs Date Time Temp Pulse Resp B/P (MAP) Pulse Ox O2 Delivery O2 Flow Rate FiO2 02/27/18 09:00 Room Air 02/27/18 08:00 97.0 82 18 145/105 (118) 96 97.0 02/27/18 04:00 97.5 57 18 133/87 (102) 96 97.5 02/27/18 00:00 97.3 54 17 125/69 (87) 96 97.3 02/26/18 20:04 Room Air 02/26/18 20:00 97.7 66 19 140/86 (104) 96 97.7 02/26/18 16:34 97.4 68 17 145/93 (110) 96 97.4 Intake and Output 02/26/18 02/27/18 19:00 07:00 Intake Total 1200 ml Balance 1200 ml Other 1200 ml # Voids 3 Height (Feet): 5 Height (Inches): 7.00 Weight (Pounds): 162 General Appearance: alert EENT: normal ENT inspection Neck: normal alignment Cardiovascular: normal peripheral pulses, normal rate, regular rhythm Respiratory/Chest: chest wall non-tender, lungs clear, normal breath sounds Abdomen: normal bowel sounds, non tender, soft Extremities: normal inspection Edema: no edema noted Arm (L), no edema noted Arm (R), no edema noted Leg (L), no edema noted Leg (R), no edema noted Pedal (L), no edema noted Pedal (R), no edema noted Generalized Neurologic: responsive, motor weakness Skin: normal pigmentation, warm/dry Nimesh Rosario DO Feb 27, 2018 13:41
--- NOTE | 2018-02-27 18:15 | Progress Note ---
DATE: 02/27/2018 SUBJECTIVE: The patient is a 67-year-old male patient with failure to thrive, but he has altered mental status, confusion, high levels of depression and anxiety worsened by stress of his medical illness that is why his attending physician has requested daily psychiatric consultation at this time. The patient is confused, disorganized, and mood labile. He has got no logical plan for his own self-care. The patient is on Cymbalta 30 mg daily, Neurontin 300 mg twice a day. Provided him with 20 minutes of supportive psychotherapy at this time. Chart reviewed and discussed with staff. Seen and assessed at bedside. I encouraged him to interact appropriately with staff. MENTAL STATUS EXAMINATION: The patient is a 67-year-old male. Appearance is disheveled. Attitude irritable and agitated. Affect guarded and restricted. Intellect poor. Mood depressed and anxious. Motor activity, psychomotor agitation. Attention span is poor. Orientation x2. Speech is pressured. Thought process disorganized and illogical. Insight and judgment is poor. DIAGNOSIS: Major depressive disorder, mild, recurrent, without psychotic features. PLAN: Treat him with Cymbalta 30 mg a day, Neurontin 300 mg twice a day to treat his depression and anxiety and help reduce pain as well. Also, 20 minutes of cognitive behavior therapy was provided to identify automatic negative thoughts and help him to convert his negative thoughts to more positive thoughts, to reduce depression and anxiety. Chart reviewed and discussed with staff. Seen and assessed at bedside. Susanne Morataya M.D. DR: Hannah JOB#: [id number] CC:
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
== END 2018-02-27 13:30 | disposition home or self-care (01) | DRG 897 ==
LOC: EDBD 19:48 → EMR 20:18 → 4E 21:30 → EDBEDREQ 02-24 05:50 → 4E 02-26 17:34
DX: F10.229 Alcohol dependence with intoxication, unspecified (principal); F33.8 Other recurrent depressive disorders; G93.49 Other encephalopathy; J98.11 Atelectasis; R41.0 Disorientation, unspecified; R62.7 Adult failure to thrive; Z59.0 Homelessness; R26.89 Other abnormalities of gait and mobility
CPT/HCPCS: 36415; 70551; 71045; 71260; 80053; 80307; 80329; 81003; 82140; 82306; 82550; 82607; 82746; 83036; 83735; 84100; 84165; 84443; 84484; 85025; 85651; 86140; 86592; 87081; 93005; 96361; 96365; 97803; 99285

== ENCOUNTER 2018-06-10 13:36 | Emergency (ER) | payer OTHER ==
[~2018-06-10] VITALS: Ht 162.6 cm; Wt 72.6 kg
[~2018-06-10 13:36] MED LIST: CYMBALTA30 MG ORAL; FOLIC ACID1 MG ORAL; GABAPENTIN300 MG ORAL; PANTOPRAZOLE SO40 MG ORAL; VITAMIN B-1100 MG ORAL
[2018-06-10] MEDS ORDERED: UNOBMED (13:43)
--- NOTE | 2018-06-10 14:12 | NUR ---
ED Nurse Note: Pt BIBA from [facility] due to complaining of chest pain. As per EMS, no signs of chest pain, but a bottle of vodka found with pt. Pt has severe dementia. Pt does not know how he got to the parade. Pt had alcohol odor. A + O x2. Ambulatory. Skin warm to touch. Rating his chest pain 8/10. Non radiating.
--- NOTE | 2018-06-10 14:25 | NUR ---
ED Nurse Note: Blood has been collected and sent to lab.
[2018-06-10 14:26] VITALS: BP 122/76
[2018-06-10 14:35] LABS: BASOPHILS % (AUTO) 1.2 % (0.0-2.0); EOSINOPHILS % (AUTO) 0.3 % (0.0-3.0); HEMOGLOBIN 14.1 G/DL (14.2-18.0); LYMPHOCYTES % (AUTO) 38.1 % (20.0-45.0); MEAN CORPUSCULAR VOLUME 103 FL (80-99); MONOCYTES % (AUTO) 9.2 % (1.0-10.0); NEUTROPHILS % (AUTO) 51.3 % (45.0-75.0); PLATELET COUNT 245 K/UL (150-450); RED BLOOD COUNT 3.97 M/UL (4.70-6.10); RED CELL DISTRIBUTION WIDTH 12.3 % (11.6-14.8); WHITE BLOOD COUNT 6.5 K/UL (4.8-10.8)
--- NOTE | 2018-06-10 14:50 | Emergency Room Report ---
History of Present Illness General Chief Complaint: Chest Pain Source: Patient, Medical Record Present Illness HPI Patient is a 67-year-old male with a history of dementia, who complains of chest pain for the last several weeks. She is brought by paramedics for public intoxication. However, the patient states that he also has chest pain. He is somewhat poor and his history and due to his dementia, he states he forgets a lot of things. He states that his chest pains are intermittently several weeks ago. There is no exacerbating or relieving factor. He denies any other associated symptoms. Currently, he has no chest pain. He states he would like to get his "heart "checked. Allergies: Coded Allergies: No Known Allergies (Unverified , 02/23/18) Patient History Past Surgical History: other - As stated above Social History: Reports: alcohol use Nursing Documentation-[facility] Past Medical History: No History, Except For Hx Cardiac Problems: Yes Hx Cancer: No Hx Gastrointestinal Problems: No History Of Psychiatric Problem: Yes - dementia Hx Neurological Problems: Yes Hx Dementia: Yes Hx Dizziness: Yes Review of Systems All Other Systems: negative except mentioned in HPI Physical Exam Vital Signs Date Time Temp Pulse Resp B/P (MAP) Pulse Ox O2 Delivery O2 Flow Rate FiO2 06/10/18 13:38 98.2 81 24 100/68 96 Room Air 06/10/18 14:26 96 ENT: hearing grossly normal, normal voice Neck: full range of motion, supple Respiratory: lungs clear, normal breath sounds, no respiratory distress, speaking full sentences Gastrointestinal: normal inspection, normal bowel sounds, non tender, soft, no peritonitis Neurologic: alert, responsive, anatomic pathology manager III-XII nml as tested, motor strength/tone normal, sensory intact, abnormal gait, grossly normal Medical Decision Making ER Course Patient presented significant complexity of this. The patient has had multiple bedside evaluation. Is very concerned about possible acute syndrome, pneumonia , pneumothorax, aortic dissection, endocarditis, pericarditis. The patient was initially very intoxicated. However, throughout the ED course the patient has sobered up. He is able to ambulate. He is able to tolerate a by mouth challenge. We will obtain to discharge the patient to his assisted. He is to follow-up with his primary care physician as an outpatient to return if is any change in symptoms or new symptoms. His symptoms are very atypical and despite having this for several weeks, he has a negative troponin. His chest x-ray was reviewed. Laboratory Tests Test 06/10/18 14:23 White Blood Count 6.5 K/UL (4.8-10.8) Red Blood Count 3.97 M/UL (4.70-6.10) L Hemoglobin 14.1 G/DL (14.2-18.0) L Hematocrit 41.0 % (42.0-52.0) L Mean Corpuscular Volume 103 FL (80-99) H Mean Corpuscular Hemoglobin 35.4 PG (27.0-31.0) H Mean Corpuscular Hemoglobin Concent 34.3 G/DL (32.0-36.0) Red Cell Distribution Width 12.3 % (11.6-14.8) Platelet Count 245 K/UL (150-450) Mean Platelet Volume 5.7 FL (6.5-10.1) L Neutrophils (%) (Auto) 51.3 % (45.0-75.0) Lymphocytes (%) (Auto) 38.1 % (20.0-45.0) Monocytes (%) (Auto) 9.2 % (1.0-10.0) Eosinophils (%) (Auto) 0.3 % (0.0-3.0) Basophils (%) (Auto) 1.2 % (0.0-2.0) Sodium Level 144 MMOL/L (136-145) Potassium Level 3.8 MMOL/L (3.5-5.1) Chloride Level 106 MMOL/L (98-107) Carbon Dioxide Level 23 MMOL/L (21-32) Anion Gap 15 mmol/L (5-15) Blood Urea Nitrogen 11 mg/dL (7-18) Creatinine 0.9 MG/DL (0.55-1.30) Estimate Glomerular Filtration Rate > 60 mL/min (>60) Glucose Level 99 MG/DL (74-106) Calcium Level 8.3 MG/DL (8.5-10.1) L Total Bilirubin 0.3 MG/DL (0.2-1.0) Aspartate Amino Transferase (AST) 27 U/L (15-37) Alanine Aminotransferase (ALT) 32 U/L (12-78) Alkaline Phosphatase 98 U/L (46-116) Troponin I 0.005 ng/mL (0.000-0.056) Total Protein 6.6 G/DL (6.4-8.2) Albumin 3.3 G/DL (3.4-5.0) L Globulin 3.3 g/dL Albumin/Globulin Ratio 1.0 (1.0-2.7) Serum Alcohol 270 mg/dL EKG Diagnostic Results EKG Time: 14:49 Rate: normal Rhythm: NSR ST Segments: no acute changes ASA given to the pt in ED: Yes Chest X-Ray Diagnostic Results Chest X-Ray Diagnostic Results : Chest X-Ray Ordered: Yes # of Views/Limited/Complete: 1 View Indication: Chest Pain Interpretation: no consolidation, no effusion, no pneumothorax, no acute cardiopulmonary disease Last Vital Signs Date Time Temp Pulse Resp B/P (MAP) Pulse Ox O2 Delivery O2 Flow Rate FiO2 06/10/18 14:26 97.7 100 28 122/76 96 Room Air 06/10/18 14:26 96 Status: improved Disposition: HOME, SELF-CARE Patient Instructions: Nonspecific Chest Pain MILADIS PEREZ Jun 10, 2018 14:50
[2018-06-10] MEDS ORDERED: Aspirin Baby 81mg ORAL ONE (15:00)
--- NOTE | 2018-06-10 15:16 | NUR ---
ED Nurse Note: Xray at the bedside.
--- NOTE | 2018-06-10 15:32 | NUR ---
called patients ed case manager @[facility] [phone]
--- NOTE | 2018-06-10 15:33 | NUR ---
left message to call back
--- NOTE | 2018-06-10 15:35 | Diagnostic Imaging Report ---
Indication: Pain Technique: XRAY Chest 1v Comparison: 02/23/2018 Findings: Heart size and mediastinal contours are stable allowing for differences in technique and patient rotation. There is minimal streaky atelectasis at the right base. Otherwise no focal consolidation. No pleural effusion or pneumothorax. There are degenerative changes of the spine. Left shoulder arthroplasty again noted. No acute osseous abnormality. Impression: Minimal linear atelectasis at the right base. Otherwise no focal consolidation, pleural effusion or pneumothorax.
--- NOTE | 2018-06-10 16:25 | NUR ---
ED Nurse Note: Spoke to Sam from lab about added lab orders of CMP and blood alcohol level. Sam confirmed it will be processed. Awaiting results.
[2018-06-10 16:34] LABS: ANION GAP 15 mmol/L (5-15); BLOOD UREA NITROGEN 11 mg/dL (7-18); CALCIUM 8.3 MG/DL (8.5-10.1); CARBON DIOXIDE 23 MMOL/L (21-32); CHLORIDE 106 MMOL/L (98-107); CREATININE 0.9 MG/DL (0.55-1.30); POTASSIUM 3.8 MMOL/L (3.5-5.1); SODIUM 144 MMOL/L (136-145)
[2018-06-10 16:38] LABS: ALANINE AMINOTRANSFERASE 32 U/L (12-78); ALBUMIN 3.3 G/DL (3.4-5.0); ALKALINE PHOSPHATASE 98 U/L (46-116); ASPARTATE AMINO TRANSFERASE 27 U/L (15-37); BILIRUBIN,TOTAL 0.3 MG/DL (0.2-1.0)
[2018-06-10 17:16] VITALS: BP 108/63
--- NOTE | 2018-06-10 17:30 | NUR ---
ED Nurse Note: Pt medically cleared by Dr. Dennis. Transferred pt to fast track with all belongings and with a steady gait. Will wait for health social work professor for tomorrow.
--- NOTE | 2018-06-10 17:36 | NUR ---
HAND-OFF: Report given to WHIT Werner.
--- NOTE | 2018-06-10 18:48 | NUR ---
ED Nurse Note:pt. will have SW placement consultation due to his altzimer memory loss
--- NOTE | 2018-06-10 19:15 | NUR ---
ED Nurse Note: Received patient from WHIT Werner. Patient sleeping with NAD.
--- NOTE | 2018-06-11 | NUR ---
ED Nurse Note: Patient sleeping with NAD.
[2018-06-11 04:00] VITALS: BP 113/67
--- NOTE | 2018-06-11 04:00 | NUR ---
ED Nurse Note: Patient awake. AO4. NAD. VSS. Provided sandwich and juice.
[2018-06-11 05:06] VITALS: BP 108/63
--- NOTE | 2018-06-11 05:07 | NUR ---
ED Nurse Note: Patient cleared for discharge per ERMD. AO4. NAD. VSS. Patientb given prescriptions and discharge instructions; verbalized understanding. ID band removed. Patient ambulated out with all personal belongings with steady gait.
--- NOTE | 2018-06-11 12:42 | Cardiology Report ---
APPROVED REPORT EKG Measurement Heart [id number] Normal sinus rhythm Normal ECG
== END 2018-06-11 05:00 | disposition home or self-care (01) ==
LOC: EDBD 13:36 → EMR 15:17
DX: R07.9 Chest pain, unspecified (principal); F03.90 Unspecified dementia, unspecified severity, without behavioral disturbance, psychotic disturbance, mood disturbance, and anxiety; Z59.0 Homelessness
CPT/HCPCS: 36415; 71045; 80053; 84484; 85025; 93005; 99284; G0480; 80329